=== PATIENT | female | born 1945 | race Caucasian/White ===

== ENCOUNTER 2020-08-24 11:41 | Emergency (ER) | payer OTHER ==
--- OUTSIDE RECORDS SUMMARY | 2020-08-24 11:46 | XMS REPORT | Continuity of Care Document ---
:1945 Author Organization [facility] t Address [facility] [place] [address] Care Team Providers Name Role Phone Wing Valdez MD Primary Care Physician [phone] Cayden Marr MD Attending Clinician Naty Wallace MD Attending Clinician Payers Payer Name Policy Type Policy Effective Date Expiration Date Sour ce Number HUMANA [id number] 2016 [place] MEDICAREHUMANA 00:00:00 Denominational MEDICARE PPO/PFFS/ERS [id number] 2016 -PresentPPO Problems Condition Condition Condition Status Onset Resolution Last Treating Co mments Source Name Details Category Date Date Treatment Clinician Date Blephariti Blephariti Disease Active Last [place] of upper s of upper 6-05 Assessmen Methodi and lower and lower 00:00: t & Plan: s t eyelids of eyelids of 00 This both eyes both eyes encounter was conducted via a patient-i nitiated virtual visit in lieu of an in person visit due to current health emergency .Worsened medially OD with accumulat ion of nightly discharge with AM symptoms. C/O itchy eyelids, no FBS.Faiza nue WC/LH, add maxitrol vs tobradex christian to medial erythemet ous eyelids qhs + PRN, and on eye qhs, x 1 week. Call if worsens/N I.15 minutes. Dry eye Dry eye Disease Active [facility] syndrome syndrome 1-26 Assessmen Met hodi of both of both 00:00: t & Plan: st lacrimal lacrimal 00 Continue glands glands Restasis OU BID. Ptosis of Ptosis of Disease Active Last Jailyn ston both both 10-20 Assessmen Methodi eyelids eyelids 00:00: t & Plan: Will schedule appt with Dr. Weston now. Combined Combined Disease Active Last [place] on forms of forms of 10-20 Assessmen Met manueli age-relate age-relate 00:00: t & Plan: st d cataract d cataract 00 Visually of right of right significa eye eye nt. The risks/sheila efits/alt ernatives of cataract surgery were discussed with the patient.H as monofocal IOL OS [address] Marr.All options d/w pt, settles on Symfony OD, as she already has near vision OS. Risk of glare d/w pt.Pre-op iTrace done.Opts for FLACS as well.OD USE ZXR00 19.0, BACKUPS 18.5 AND 19.5FLACS , NO LASER [place] Pseudophak Pseudophak Disease Active Overview : Garcia ia ia 10-20 OS Methodi 00:00: Dr. Marr, monofocal OD 11/28/17 ZXR00 18.5, FLACSLast Assessmen t & Plan: OS Dr. Marr, monofocal OD 11/28/17 ZXR00 18.5, FLACSs/p phaco/PCI OL . Doing well.Take drops as per handout/i nstructio n sheet.Ret urn for followup in 1 month, sooner if any problems. Allergies, Adverse Reactions, Alerts Allergy Allergy Status Severity Reaction(s) Onset Inactive Treating Comm ents Source Name Type Date Date Clinician Tramadol Propensi Active DizzySpac Jailyn ston ty to 11-28 es out Methodi adverse 00:00: st reaction 00 s to drug Penicill Propensi Active [place] ins ty to 12-09 Methodi adverse 00:00: st reaction 00 s to drug Family History Family Member Diagnosis Comments Start Date Stop Date Source Natural brother No Known Problems Ho maryam Denominational Natural father Cataracts [facility] Maternal aunt No Known Problems [place] Denominational Maternal grandfather No Known Problems Garcia Denominational Maternal grandmother No Known Problems Garcia Denominational Maternal uncle No Known Problems Jailyn ston Denominational Natural mother No Known Problems Jailyn ston Denominational Paternal aunt No Known Problems Jerald eloy Denominational Paternal grandfather No Known Problems Garcia Denominational Paternal grandmother No Known Problems Garcia Denominational Paternal uncle No Known Problems Jailyn carrington Denominational Natural sister No Known Problems Jailyn carrington Denominational Social History Social Habit Start Date Stop Date Quantity Comments Source Sex Assigned At [facility] ethodist Tobacco use and 2020-05-01 2020-05-01 Never used [facility] ethodist exposure 00:00:00 00:00:00 Alcohol intake 2020-05-01 2020-05-01 Current [facility] thodist 00:00:00 00:00:00 non-drinker of alcohol (finding) Smoking Status Start Date Stop Date Source Never smoker [facility] Methodis t Medications Ordered Filled Start Stop Current Ordering Indication Dosage Frequency Signature Comments Components Source Medication Medication Date Date Medication? Clinician (SIG) Name Name multivitami Yes 1{capsu QD Take 1 [place] n capsule 05-01 le} capsule by Meth sharron 09:49: mouth st 10 daily. cycloSPORIN Yes 1[drp] Q.5D Administer [facility] E 05-01 1 drop to Methodi (Restasis) 09:48: both eyes st 0.05 % 53 2 (two) ophthalmic times a emulsion day. tobramycin- 2020- No QD [facility]27 eye Methodi ne 00:00: 23:[address] (Tobradex) 00 :00 for 7 0.3-0.1 % days. ophthalmic Apply to ointment red eyelid margins right eye at bedtime and as needed, and on right eye at bedtime. neomycin-po 2020- No QD Administer [place] lymyxin 02-27 to the Methodi B-dexameth 00:00: 23:59 right eye s t (MAXITROL) 00 :00 nightly 3.5 for 7 mg/g-10,000 days. unit/g-0.1 Apply to % ointment red eyelid margins right eye at bedtime and as needed, and on right eye at bedtime. propylene Yes 1[drp] QD Administer [facility] glycol 0.6 4-01 1 drop to Meth sharron % drops 00:00: both eyes st 00 every morning. PREMARIN 2017-0 Yes Garcia 0.625 mg 1-16 Methodi tablet 00:00: st 00 tolterodine 2017-0 Yes Lisandra javier LA (DETROL 1-16 Methodi LA) 4 MG 24 00:00: st hr capsule 00 Procedures This patient has no known procedures. Plan of Care Planned Activity Planned Date Details Comments Source Future Scheduled 2020-04-25 INFLUENZA VACCINE [place] Denominational Test 00:00:00 [code = INFLUENZA VACCINE] Future Scheduled 2009-02-05 65+ PNEUMOCOCCAL Garcia Denominational Test 00:00:00 VACCINE (1 of 1 - PPSV23) [code = 65+ PNEUMOCOCCAL VACCINE (1 of 1 - PPSV23)] Future Scheduled 1994-02-05 COLONOSCOPY SCREENING [facility] Denominational Test 00:00:00 [code = COLONOSCOPY SCREENING] Future Scheduled 1994-02-05 SHINGLES VACCINES (#1) H mikki Denominational Test 00:00:00 [code = SHINGLES VACCINES (#1)] Encounters Start End Encounter Admission Attending Care Care Encounter Source Date/Time Date/Time Type Type Clinicians Facility Department ID 2020-05-01 2020-05-01 Outpatient JULIANNE MARR [facility] [id number] [facility] 00:00:00 00:00:[address] 2020-02-28 2020-02-28 Outpatient DESTINEE [facility] [id number] [facility] 00:00:00 00:00:00 [place] [address] Results This patient has no known results.
--- OUTSIDE RECORDS SUMMARY | 2020-08-24 11:46 | XMS REPORT | Clinical Summary ---
:1945 Author Organization [facility] Address [address] [place] [address] Care Team Providers Name Role Phone Wing Rojo MD Primary Care Provider [phone] Allergies Active Allergy Reactions Severity Noted Date Comments Penicillins 12/09/2016 Tramadol 11/28/2017 Dizzy Spaces out Medications Medication Sig Dispensed Refills Start Date End Date Status PREMARIN 0.625 mg 0 10/10/2016 A ctive tablet tolterodine LA 0 10/10/2016 Acti ve (DETROL LA) 4 MG 24 hr capsule propylene glycol 0.6 Administer 1 drop 2.5 mL 2 12/24/2018 Active % drops to both eyes every morning. cycloSPORINE Administer 1 drop 0 Active (Restasis) 0.05 % to both eyes 2 ophthalmic emulsion (two) times a day. multivitamin capsule Take 1 capsule by 0 Active mouth daily. tobramycin-dexametha Apply to eye 3.5 g 0 02/28/202003/06 sone (Tobradex) nightly for 7 0.3-0.1 % ophthalmic days. Apply to ointment red eyelid margins right eye at bedtime and as needed, and on right eye at bedtime. neomycin-polymyxin Administer to the 3.5 g 0 02/28/2020 B-dexameth right eye nightly (MAXITROL) 3.5 for 7 days. Apply mg/g-10,000 to red eyelid unit/g-0.1 % margins right eye ointment at bedtime and as needed, and on right eye at bedtime. Active Problems Problem Noted Date Blepharitis of upper and lower eyelids of both eyes Last Assessment & Plan: This encounter was conducted via a patient-initiated virtual visit in lieu of an in person visit due to current health emergency. Worsened medially OD with accumulation o f nightly discharge with AM symptoms. C/O itchy eyelids, no FBS. Continue WC/LH, add maxitrol vs tobradex christian to medial erythemetous eyelids qhs + PRN, and on eye qhs, x 1 week. Call if worsens/NI. 15 minutes. Dry eye syndrome of both lacrimal glands 10/20/2017 Last Assessment & Plan: Continue Restasis OU BID. Ptosis of both eyelids 10/20/2017 Last Assessment & Plan: Will schedule appt with Dr. Weston now. Combined forms of age-related cataract of right eye Last Assessment & Plan: Visually significant. The risks/benefits/alternatives of cataract surgery were discussed with the patient. Has monofocal IOL OS 20 years ago from David Marr. All options d/w pt, settles on Symfony O D, as she already has near vision OS. Risk of glare d/w pt. Pre-op iTrace done. Opts for FLACS as well. OD USE ZXR00 19.0, BACKUPS 18.5 AND 19.5 FLACS, NO LASER AK Pseudophakia 10/20/2017 Overview: OS Dr. Marr, monofocal OD 11/28/17 ZXR00 18.5, FLACS Last Assessment & Plan: OS Dr. Marr, monofocal OD 11/28/17 ZXR00 18.5, FLACS s/p phaco/PCIOL . Doing well. Take drops as per handout/instruction sh eet. Return for followup in 1 month, sooner i f any problems. Encounters Date Type Specialty Care Team Description 05/01/2020 Office Visit Ophthalmology Lui Marr II, MD Dry ey e syndrome of both eyes (Primary D x) 05/01/2020 Travel 02/28/2020 Telemedicine Ophthalmology Jacobo Wallace MD Blepha ritis of upper and lower eyelids o f both eyes, unspecifi ed type (Primary Dx) 02/27/2020 Telephone Ophthalmology Lui Marr II, MD after 08/24/2019 Surgical History Surgery Date Site/Laterality Comments HYSTERECTOMY SALPINGOOPHORECTOMY EYE SURGERY PHACOEMULSIFICATION, 11/28/2017 Eye/Right Procedure: LASER-ASSISTED CATARACT, WITH IOL PHACOEMULSIFI CATION WITH IMPLANTATION INTRAOCULAR LENS IMPLANT, RIGHT EYE; Surg casimiro: Jacobo Wallace MD; Location: [facility] 18 OR; Service: Ophthalmology; Laterality: Right; Medical devices from this surgery are in t he Implants section. LASER LEAD EXTRACTION FOR 11/28/2017 Eye/Right Proced ure: LASER-ASSISTED SURGERY CATARACT EXTRACT ION SURGERY, RIGHT EYE; Surg casimiro: Jacobo Wallace MD; Location: [facility] OR; Service: Ophthalmology; Laterality: Right; Medical devices from this surgery are in t he Implants section. COLONOSCOPY TONSILLECTOMY ADENOIDECTOMY BUNIONECTOMY CATARACT EXTRACTION W/ 11/23/2001 - Left Dr. Marr INTRAOCULAR LENS IMPLANT 12/23/2001 CATARACT EXTRACTION W/ 11/28/2017 Right EDOF Lens INTRAOCULAR LENS IMPLANT EYELID SURGERY PROCEDURE - 09/25/2017 - Right ptosi s repair OD - RIGHT EYE 09/24/2018 Medical History Medical History Date Comments Cataract Diverticulosis Hemorrhoids GERD (gastroesophageal reflux disease) Pneumonia Family History Medical History Relation Name Comments No Known Problems Brother Cataracts Father No Known Problems Maternal Aunt No Known Problems Maternal Grandfather No Known Problems Maternal Grandmother No Known Problems Maternal Uncle No Known Problems Mother No Known Problems Paternal Aunt No Known Problems Paternal Grandfather No Known Problems Paternal Grandmother No Known Problems Paternal Uncle No Known Problems Sister Relation Name Status Comments Brother Father Maternal Aunt Maternal Grandfather Maternal Grandmother Maternal Uncle Mother Paternal Aunt Paternal Grandfather Paternal Grandmother Paternal Uncle Sister Social History Tobacco Use Types Packs/Day Years Used Date Never Smoker Smokeless Tobacco: Never Used Alcohol Use Drinks/Week oz/Week Comments No Sex Assigned at Date Recorded Not on file Last Filed Vital Signs Not on file Plan of Treatment Health Maintenance Due Date Last Done Comments COLONOSCOPY SCREENING 02/05/1994 SHINGLES VACCINES (#1) 02/05/1994 65+ PNEUMOCOCCAL VACCINE (1 of 1 - PPSV23) 02/05/2009 INFLUENZA VACCINE 04/25/2020 Implants Implanted Type Area Pcu Rn Device Shelf Model / Serial Identifier Expiration Date / L ot Lens Iol [employer]ecnis Symfony Erv 18.5d - [id number] - [id number] Right: LARRY 06/16/2022 [id number] / Implanted: Qty: 1 on 11/28/2017 by Jacobo Wallace MD at [facility] Eye [id number] / [id number] Results Not on fileafter 08/24/2019 Insurance Payer Benefit Plan / Subscriber ID Effective Dates Phone Addre ss Type Group HUMANA MEDICARE HUMANA MEDICARE [id number] 2016-Present PPO PPO/PFFS/ERS MCR Advance Directives For more information, please contact: [phone] Type Date Recorded Patient Talent Advisor Explanati on Advance Directives, Living Will and Medical Power of Direct Sales Representative
--- NOTE | 2020-08-24 12:56 | RAD REPORT ---
EXAM DESCRIPTION: RAD - Chest Single View - 08/24/2020 12:41 pm CLINICAL HISTORY: DYSPNEA, fall COMPARISON: None TECHNIQUE: AP portable chest image was obtained 08/24/2020 12:41 pm . FINDINGS: No pulmonary contusion or acute lung parenchymal process. Nipple shadow overlies the later al lower left chest Heart and vasculature are normal. No measurable pleural effusion and no pneumotho rax. No acute bony abnormality seen. No acute aortic findings suspected. IMPRESSION: No acute cardiopulmonary process.
--- NOTE | 2020-08-24 12:58 | RAD REPORT ---
EXAM DESCRIPTION: CT - Head C Spine Mpr Wo Con - 08/24/2020 12:44 pm CLINICAL HISTORY: Syncope. Head and neck injury status post fall. Head and neck pain COMPARISON: None. TECHNIQUE: Computed axial tomography of the head and cervical spine was obtained. Sagittal and coronal reconstruction was performed. All CT scans are performed using dose optimization technique as appropriate and may include automated exposure control or mA/KV adjustment according to patient size. FINDINGS: An intracranial bleed is not seen. The ventricles are normal in caliber. An extra-axial fl uid collection is not noted.Fluid within the visualized sinuses and mastoids is not seen A cervical fracture is not visualized. No dislocation is noted. Mild anterior subluxation C3 on C4. M inimal posterior subluxation C5 on C6. Spondylosis involves mid and distal cervical spine IMPRESSION: No acute intracranial abnormality is seen. A cervical fracture is not visualized. If the patient continues to have symptoms to suggest intracra nial /spinal cord pathology then MRI would be recommended
[2020-08-24 13:31] LABS: Absolute Lymphocytes (CBC) 1.4 K/uL (0.7-4.9); Basophils % 0.7 % (0-1.3); Hematocrit 38.7 % (36.0-45.0); Lymphocytes % 13.9 % (15.3-44.8); MPV 11.3 fL (7.6-11.3)
[2020-08-24 13:32] LABS: Protime INR 0.91
[2020-08-24 13:47] LABS: ALT/SGPT 25 U/L (12-78); AST/SGOT 23 U/L (15-37); Albumin 3.5 g/dL (3.4-5.0); Alkaline Phosphatase 78 U/L (45-117); BUN Blood Urea Nitrogen 21 mg/dL (7-18); Bicarbonate 32 mmol/L (21-32); Bilirubin Direct 0.1 mg/dL (0-0.2); Bilirubin Total 0.5 mg/dL (0.2-1.0); Glucose Level 79 mg/dL (74-106); Magnesium 2.3 mg/dL (1.8-2.4); NT PRO-BNP 625 pg/mL (<450); Potassium 3.4 mmol/L (3.5-5.1); Protein, Total 7.7 g/dL (6.4-8.2); Sodium Level 139 mmol/L (136-145); Troponin (Emerg Dept Use Only) < 0.02 ng/mL (0.0-0.045)
[2020-08-24] MEDS ORDERED: NA CHLORIDE 0.9% 1,000 ML ONE (14:30)
[2020-08-24] MEDS ORDERED: POTASSIUM 25 MEQ EFFERV TAB ONE (14:32)
--- NOTE | 2020-08-24 14:34 | EDPHYS ---
Physician Documentation [facility] Name: Ashwini Rojo Age: 75 yrs Sex: Female : 1945 Arrival Date: 08/24/2020 Time: 11:48 Bed 5 Private MD: ED Physician Austin Puentes HPI: 08/24 13:54 This 75 yrs old Female presents to ER via Ambulatory with complaints of jr8 Syncope. 13:54 The patient has experienced syncope, collapsed. Onset: The symptoms/episode jr8 began/occurred acutely, yesterday. Duration: This was a single episode, that lasted an unknown period of time. Context: the episode(s) was witnessed, by family, occurred at home, occurred while the patient was standing. Associated injury: Head/face: pain, Neck: pain. Associated signs and symptoms: The patient has no apparent associated signs or symptoms. Current symptoms: Currently, the patient is not experiencing any symptoms, the patient feels back to baseline, no decreased level of consciousness, no confusion, no dysphasia, no headache, no paralysis, no visual changes. The patient has not experienced similar symptoms in the past. The patient has not recently seen a physician. Patient stated that she had been feeling well. Stated that she just finished putting on some shoes and was walking down stairs. Stated that next thing she remembers is having to be helped to her bed. Family stated that she had collapsed on the stairs. Patient denies any preceding symptoms. Mild nausea post incident. Stated that today she feels back to normal other than mild pain to back of neck and head . Historical: - Allergies: 12:07 PENICILLINS; ss 12:08 tramadol; ss - Home Meds: 12:07 Detrol Oral [Active]; ss - PMHx: 12:07 None; ss - PSHx: 12:07 Hysterectomy; ss - Immunization history:: Adult Immunizations up to date. - Social history:: Smoking status: Patient denies any tobacco usage or history of. ROS: 13:54 Eyes: Negative for injury, pain, redness, and discharge, ENT: Negative for injury, jr8 pain, and discharge, Cardiovascular: Negative for chest pain, palpitations, and edema, Respiratory: Negative for shortness of breath, cough, wheezing, and pleuritic chest pain, Abdomen/GI: Negative for abdominal pain, nausea, vomiting, diarrhea, and constipation, Back: Negative for injury and pain, MS/Extremity: Negative for injury and deformity, Skin: Negative for injury, rash, and discoloration. 13:54 Neck: Positive for pain with movement, pain at rest, tenderness, Negative for bony tenderness. 13:54 Neuro: Positive for syncope. Exam: 13:54 Head/Face: Normocephalic, atraumatic. Eyes: Pupils equal round and reactive to light, jr8 extra-ocular motions intact. Lids and lashes normal. Conjunctiva and sclera are non-icteric and not injected. Cornea within normal limits. Periorbital areas with no swelling, redness, or edema. ENT: Nares patent. No nasal discharge, no septal abnormalities noted. Tympanic membranes are normal and external auditory canals are clear. Oropharynx with no redness, swelling, or masses, exudates, or evidence of obstruction, uvula midline. Mucous membranes moist. Chest/axilla: Normal chest wall appearance and motion. Nontender with no deformity. No lesions are appreciated. Cardiovascular: Regular rate and rhythm with a normal S1 and S2. No gallops, murmurs, or rubs. Normal PMI, no JVD. No pulse deficits. Respiratory: Lungs have equal breath sounds bilaterally, clear to auscultation and percussion. No rales, rhonchi or wheezes noted. No increased work of breathing, no retractions or nasal flaring. Abdomen/GI: Soft, non-tender, with normal bowel sounds. No distension or tympany. No guarding or rebound. No evidence of tenderness throughout. Back: No spinal tenderness. No costovertebral tenderness. Full range of motion. Skin: Warm, dry with normal turgor. Normal color with no rashes, no lesions, and no evidence of cellulitis. MS/ Extremity: Pulses equal, no cyanosis. Neurovascular intact. Full, normal range of motion. Neuro: Awake and alert, GCS 15, oriented to person, place, time, and situation. Cranial nerves II-XII grossly intact. Motor strength 5/5 in all extremities. Sensory grossly intact. Cerebellar exam normal. Normal gait. 13:54 Neck: External neck: tenderness, that is mild, of the right mid cervical area, C-spine: appears grossly normal, no vertebral tenderness, no crepitus, Thyroid: appears normal, Trachea: is midline with no obvious abnormalities, ROM/movement: pain, that is mild, with any movement, Lymph nodes: no appreciated lymphadenopathy. Vital Signs: 12:03 BP 177 / 94; Pulse 77; Resp 16; Temp 98.6(TE); Pulse Ox 98% on R/A; Weight 40.82 kg; ss Height 5 ft. 1 in. (154.94 cm); Pain 0/10; 12:34 BP 190 / 86 LA Supine; Pulse 73; Resp 16; Pulse Ox 100% on R/A; dh3 12:36 BP 181 / 85 LA Sitting; Pulse 79; Resp 17; Pulse Ox 100% on R/A; dh3 12:38 BP 153 / 89 LA Standing; Pulse 83; Resp 18; Pulse Ox 100% on R/A; dh3 13:34 BP 170 / 73; Pulse 67; Resp 17; Pulse Ox 100% ; sv 14:30 BP 175 / 74; Pulse 67; Resp 16; Pulse Ox 100% on R/A; em 15:45 BP 177 / 74; Pulse 69; Resp 16; Pulse Ox 98% on R/A; em 12:03 Body Mass Index 17.01 (40.82 kg, 154.94 cm) ss MDM: 12:13 Patient medically screened. jr8 14:24 Data reviewed: vital signs, nurses notes, lab test result(s), EKG, radiologic studies, jr8 CT scan, plain films. Data interpreted: Pulse oximetry: on room air is 100 %. Interpretation: normal. Counseling: I had a detailed discussion with the patient and/or guardian regarding: the historical points, exam findings, and any diagnostic results supporting the discharge/admit diagnosis, lab results, radiology results, the need for outpatient follow up, a family practitioner, to return to the emergency department if symptoms worsen or persist or if there are any questions or concerns that arise at home. ED course: Patient asymptomatic at this time. Did have tilting shown on BP but without symptoms. Mild hypokalemia. No other acute findings on labs or imaging. Recommended f/u with PCP. Most likely was orthostatic vs neurocardiogenic syncope. If worse or other symptoms were to arise to come back to ED. Patient good with this . 14:26 Special discussion: I have referred the patient to see his PCP for further evaluation of high blood pressure. 08/24 12:22 Order name: Basic Metabolic Panel; Complete Time: 13:50 08/24 12:22 Order name: CBC with Diff; Complete Time: 13:38 08/24 12:22 Order name: LFT's; Complete Time: 13:50 08/24 12:22 Order name: Magnesium; Complete Time: 13:50 08/24 12:22 Order name: NT PRO-BNP; Complete Time: 13:50 08/24 12:22 Order name: PT-INR; Complete Time: 13:50 08/24 12:22 Order name: Troponin (emerg Dept Use Only); Complete Time: 13:50 08/24 12:22 Order name: XRAY Chest (1 view); Complete Time: 13:12 08/24 12:22 Order name: EKG; Complete Time: 12:23 08/24 12:22 Order name: Cardiac monitoring; Complete Time: 13:12 08/24 12:22 Order name: CT Head C Spine; Complete Time: 13:12 08/24 12:22 Order name: EKG - Nurse/Tech; Complete Time: 13:12 08/24 12:22 Order name: IV Saline Lock; Complete Time: 13:12 08/24 12:22 Order name: Labs collected and sent; Complete Time: 13:12 08/24 12:22 Order name: O2 Per Protocol; Complete Time: 12:42 08/24 12:22 Order name: O2 Sat Monitoring; Complete Time: 12:42 08/24 12:22 Order name: Orthostatics; Complete Time: 12:44 Administered Medications: 14:20 Drug: NS 0.9% 1000 ml Route: IV; Rate: 1000 ml; Site: right antecubital; em 15:52 Follow up: IV Status: Completed infusion; IV Intake: 1000ml em 14:20 Drug: Potassium Effervescent Tablet 50 mEq Route: PO; em 14:47 Follow up: Response: No adverse reaction em 14:47 Not Given (Other Intervention Used): Potassium Chloride 40 mEq PO once em Disposition: 16:54 Co-signature as Attending Physician, Austin Puentes MD. rn Disposition: 08/24/20 14:34 Discharged to Home. Impression: Syncope and collapse, Dehydration. - Condition is Stable. - Discharge Instructions: Dehydration, Adult, Syncope. - Medication Reconciliation Form, Thank You Letter, Antibiotic Education, Prescription Opioid Use form. - Follow up: Private Physician; When: 2 - 3 days; Reason: Recheck today's complaints, Continuance of care, Re-evaluation by your physician. - Problem is new. - Symptoms have improved. Signatures: Dispatcher [employer] EDGustavo Quezada RN RN Austin Puentes MD MD rn Smirch, Shelby, RN RN ss Roszak, Josh, PA PA jr8 Corrections: (The following items were deleted from the chart) 15:57 14:34 08/24/2020 14:34 Discharged to Home. Impression: Syncope and collapse; em Dehydration. Condition is Stable. Forms are Medication Reconciliation Form, Thank You Letter, Antibiotic Education, Prescription Opioid Use. Follow up: Private Physician; When: 2 - 3 days; Reason: Recheck today's complaints, Continuance of care, Re-evaluation by your physician. Problem is new. Symptoms have improved. jr8
--- NOTE | 2020-08-24 14:34 | ER ---
Nurse's Notes [facility] Name: Ashwini Rojo Age: 75 yrs Sex: Female : 1945 Arrival Date: 08/24/2020 Time: 11:48 Bed 5 Private MD: Diagnosis: Syncope and collapse;Dehydration Presentation: 08/24 12:03 Chief complaint: Patient states: "I was at the top of the stairs yesterday and I don't ss remember anything, but my heard a noise and found me on the flat of the stairs." Pt reports headache 10/04, but just wants to get checked out. Coronavirus screen: Client denies travel out of the [place] in the last 14 days. Ebola Screen: Patient denies exposure to infectious person. Patient denies travel to an Ebola-affected area in the 21 days before illness onset. Initial Sepsis Screen: Does the patient meet any 2 criteria? No. Patient's initial sepsis screen is negative. Does the patient have a suspected source of infection? No. Patient's initial sepsis screen is negative. Risk Assessment: Do you want to hurt yourself or someone else? Patient reports no desire to harm self or others. Onset of symptoms was August 23, 2020. 12:03 Method Of Arrival: Ambulatory ss 12:03 Acuity: HENRY 3 ss Historical: - Allergies: 12:07 PENICILLINS; ss 12:08 tramadol; ss - Home Meds: 12:07 Detrol Oral [Active]; ss - PMHx: 12:07 None; ss - PSHx: 12:07 Hysterectomy; ss - Immunization history:: Adult Immunizations up to date. - Social history:: Smoking status: Patient denies any tobacco usage or history of. Screenin:25 Abuse screen: Denies threats or abuse. Nutritional screening: No deficits noted. em Tuberculosis screening: No symptoms or risk factors identified. Fall Risk None identified. Assessment: 12:20 General: Appears in no apparent distress. comfortable, Behavior is calm, cooperative, em appropriate for age. Pain: Denies pain. Neuro: Level of Consciousness is awake, alert, obeys commands, Oriented to person, place, time, situation, Appropriate for age Reports a syncopal episode. Cardiovascular: Denies chest pain, shortness of breath, Capillary refill < 3 seconds Patient's skin is warm and dry. Respiratory: Airway is patent Respiratory effort is even, unlabored, Respiratory pattern is regular, symmetrical. Derm: Skin is intact, is healthy with good turgor, is thin, Skin is pink, warm \\T\\ dry. Musculoskeletal: Capillary refill < 3 seconds, Range of motion: intact in all extremities. 13:30 Reassessment: Patient appears in no apparent distress at this time. Patient and/or em family updated on plan of care and expected duration. Pain level reassessed. Patient is alert, oriented x 3, equal unlabored respirations, skin warm/dry/pink. 14:20 Reassessment: Patient appears in no apparent distress at this time. Patient and/or em family updated on plan of care and expected duration. Pain level reassessed. Patient is alert, oriented x 3, equal unlabored respirations, skin warm/dry/pink. 14:45 Reassessment: pending completion of IV fluids before being discharged. em 15:30 Reassessment: Patient appears in no apparent distress at this time. Patient and/or em family updated on plan of care and expected duration. Pain level reassessed. Patient is alert, oriented x 3, equal unlabored respirations, skin warm/dry/pink. Patient states feeling better. Patient states symptoms have improved. Vital Signs: 12:03 BP 177 / 94; Pulse 77; Resp 16; Temp 98.6(TE); Pulse Ox 98% on R/A; Weight 40.82 kg; ss Height 5 ft. 1 in. (154.94 cm); Pain 0/10; 12:34 BP 190 / 86 LA Supine; Pulse 73; Resp 16; Pulse Ox 100% on R/A; dh3 12:36 BP 181 / 85 LA Sitting; Pulse 79; Resp 17; Pulse Ox 100% on R/A; dh3 12:38 BP 153 / 89 LA Standing; Pulse 83; Resp 18; Pulse Ox 100% on R/A; dh3 13:34 BP 170 / 73; Pulse 67; Resp 17; Pulse Ox 100% ; sv 14:30 BP 175 / 74; Pulse 67; Resp 16; Pulse Ox 100% on R/A; em 15:45 BP 177 / 74; Pulse 69; Resp 16; Pulse Ox 98% on R/A; em 12:03 Body Mass Index 17.01 (40.82 kg, 154.94 cm) ED Course: 11:48 Patient arrived in ED. mr 12:06 Triage completed. 12:07 Arm band placed on right wrist. 12:13 Tang Huitron PA is PHCP. jr8 12:13 Austin Puentes MD is Attending Physician. jr8 12:25 Gustavo Garza, RN is Primary Nurse. em 12:26 Patient has correct armband on for positive identification. Bed in low position. Call em light in reach. Adult w/ patient. Pulse ox on. NIBP on. 12:41 XRAY Chest (1 view) In Process Unspecified. EDMS 12:43 CT Head C Spine In Process Unspecified. EDMS 12:56 CT completed. Patient tolerated procedure well. Patient moved back from CT. 13:00 EKG done, by ED staff, reviewed by Tang HUGHES. 3 13:04 Initial lab(s) drawn, by wy, sent to lab. Inserted saline lock: 20 gauge in right dh3 forearm, using aseptic technique. Blood collected. 15:45 No provider procedures requiring assistance completed. IV discontinued, intact, em bleeding controlled, No redness/swelling at site. Pressure dressing applied. Administered Medications: 14:20 Drug: NS 0.9% 1000 ml Route: IV; Rate: 1000 ml; Site: right antecubital; em 15:52 Follow up: IV Status: Completed infusion; IV Intake: 1000ml em 14:20 Drug: Potassium Effervescent Tablet 50 mEq Route: PO; em 14:47 Follow up: Response: No adverse reaction em 14:47 Not Given (Other Intervention Used): Potassium Chloride 40 mEq PO once em Intake: 15:52 IV: 1000ml; Total: 1000ml. em Outcome: 14:34 Discharge ordered by . jr8 15:52 Discharged to home ambulatory. em 15:52 Condition: improved 15:52 Discharge instructions given to patient, Instructed on discharge instructions, follow up and referral plans. Demonstrated understanding of instructions, follow-up care. 15:57 Patient left the ED. em Signatures: Dispatcher [employer] EDMS Malka Tamayo RN RN Jonathan, Viola Cristobal Gustavo Garza, KAHLIL GUILLORY Theresa Hsu RN RN Tang Huitron PA PA jrBeti Rincon dh3 Corrections: (The following items were deleted from the chart) 14:47 14:20 Potassium Chloride 40 mEq PO em em
[2020-08-24 17:30] VITALS: TEMP 98.6
[2020-08-24 17:45] VITALS: BP 177/74; O2SAT 98
--- NOTE | 2020-08-26 06:12 | EKG ---
Test Date: 2020-08-24 Test Time: 12:51:57 [employer] Operator: GARRET MEASUREMENT RESULTS: Intervals: Rate: 69 WA: 168 QRSD: 76 QT: 402 QTc: 430 [place]: P: 76 WA: 168 QRS: -22 T: 39 INTERPRETIVE STATEMENTS: Normal sinus rhythm Possible Left atrial enlargement Nonspecific ST abnormality Abnormal ECG No previous ECG available for comparison Electronically Signed On 08-26-20 06:09:50 [employer] by Antoni Gabriel
== END 2020-08-24 15:57 | disposition home or self-care (01) ==
LOC: ER 11:41
DX: E86.0 Dehydration (principal); Z88.0 Allergy status to penicillin; Z88.5 Allergy status to narcotic agent
CPT/HCPCS: 96361; 93005; 85025; 80048; 36415; 83735; 85610; 80076; 84484; 83880; 70450; 72125; 71045; 96360; 99284; J7030